=== PATIENT | male | born 1960 | race Two or more races ===

== ENCOUNTER 2019-10-11 12:40 | Emergency (ER) | payer OTHER ==
[~2019-10-11] VITALS: Ht 165.1 cm; Wt 54.4 kg
--- NOTE | 2019-10-11 12:56 | NUR ---
patient tenzin, from [facility] due to hyperglycemia patient states he doesn't take his insulin x 1 week. On room air, breathing evenly and unlabored. connected to the monitor and pulse ox. kept comfortable, will continue to monitor accordingly.
[2019-10-11 13:05] LABS: BASOPHILS # (AUTO) 0.1 /CMM (0.0-0.2); BASOPHILS % (AUTO) 0.9 % (0.0-2.0); EOSINOPHILS % (AUTO) 1.7 % (0.0-6.0); HEMATOCRIT 37 % (39-51); HEMOGLOBIN 11.8 g/dL (13.5-17.5); LYMPHOCYTES # (AUTO) 1.3 /CMM (0.8-4.8); LYMPHOCYTES % (AUTO) 14.8 % (20.0-44.0); MEAN CORPUSCULAR HGB CONC 32 g/dl (31.0-36.0); MEAN CORPUSCULAR VOLUME 91 fL (80-96); MONOCYTES # (AUTO) 0.5 /CMM (0.1-1.30); NEUTROPHILS % (AUTO) 77.6 % (43.0-81.0); PLATELET COUNT (AUTO) 275 /CMM (150-450); RED BLOOD CELL COUNT(AUTO) 4.02 MIL/uL (4.5-6.0)
[2019-10-11 13:21] LABS: CALCIUM, SERUM 10.3 mg/dL (8.5-10.1); CREATININE 2.2 mg/dL (0.6-1.3); POTASSIUM 5.2 mmol/L (3.5-5.1)
[2019-10-11] MEDS ORDERED: INSULIN REGULAR, HUMAN 100 UNIT/ML 10 ML VIAL ONE (13:51)
[2019-10-11] MEDS ORDERED: INSULIN REGULAR, HUMAN 100 UNIT/ML 10 ML VIAL SQ ONE ×2 (14:00→16:00)
[2019-10-11] MEDS ORDERED: IV NS 0.9% 1,000 ML BAG IV ONE (14:00)
[2019-10-11] MEDS ORDERED: AMLO10TA7 PO (14:37)
[2019-10-11] MEDS ORDERED: ATOR80TA PO (14:37)
[2019-10-11] MEDS ORDERED: LISI-603 PO (14:37)
[2019-10-11] MEDS ORDERED: CLOP75TA15 PO (14:37)
[2019-10-11] MEDS ORDERED: INSU100I14 SQ (14:37)
[2019-10-11] MEDS ORDERED: INSU100V7 SQ ×2 (14:37)
[2019-10-11] MEDS ORDERED: MULT-1201 PO (14:38)
--- NOTE | 2019-10-11 15:05 | NUR ---
[facility] ([facility]) called for patient update, and will call back to where to transfer the patient.
--- NOTE | 2019-10-11 15:27 | NUR ---
Faxed clinicals to [facility]
[2019-10-11 17:22] VITALS: BP 128/71
--- NOTE | 2019-10-11 17:23 | NUR ---
Patient discharged to home in stable condition. Written and verbal after care instructions given. Patient verbalizes understanding of instruction.IV removed. Catheter intact and site benign. Pressure and 4x4 applied to site. No bleeding noted.
== END 2019-10-11 17:22 | disposition home or self-care (01) ==
LOC: ER 12:41
DX: E11.65 Type 2 diabetes mellitus with hyperglycemia (principal); I10 Essential (primary) hypertension; Z79.899 Other long term (current) drug therapy; Z79.4 Long term (current) use of insulin
CPT/HCPCS: 36415; 80048; 82962 ×2; 85025; 96360; 96372 ×2; 99283; J1815; J7030